=== PATIENT | female | born 1970 | race Caucasian/White ===

== ENCOUNTER 2020-11-11 17:06 | Emergency (ER) | payer BC ==
[~2020-11-11] VITALS: Ht 167.6 cm; Wt 71.2 kg
[~2020-11-11 17:06] MED LIST: LIDEX0.05% T; PREDNICOT20 MG PO; VICODIN ES 7501 TAB PO
[2020-11-11 17:18] VITALS: BP 137/87
[2020-11-11] MEDS ORDERED: IBUPROFEN600 MG PO (19:01)
[2020-11-11] MEDS ORDERED: AUGMENTIN 875875 MG PO (19:01)
== END 2020-11-11 21:08 | disposition home or self-care (01) ==
LOC: ED 17:06
DX: S61.251A Open bite of left index finger without damage to nail, initial encounter (principal); W55.51XA Bitten by raccoon, initial encounter; Y93.89 Activity, other specified; Y92.89 Other specified places as the place of occurrence of the external cause; Y99.8 Other external cause status

== ENCOUNTER 2020-11-14 08:34 | Emergency (ER) | payer BC ==
[~2020-11-14] VITALS: Ht 167.6 cm; Wt 71.2 kg
[~2020-11-14 08:34] MED LIST changes: +AUGMENTIN 875875 MG PO; +IBUPROFEN600 MG PO
[2020-11-14 08:42] VITALS: BP 124/80
== END 2020-11-14 09:27 | disposition home or self-care (01) ==
LOC: ED 08:34
DX: Z23 Encounter for immunization (principal)

== ENCOUNTER 2020-11-17 10:31 | Emergency (ER) | payer BC ==
[~2020-11-17] VITALS: Ht 167.6 cm; Wt 71.2 kg
[2020-11-17 10:44] VITALS: BP 102/70
== END 2020-11-17 11:15 | disposition home or self-care (01) ==
LOC: ED 10:31
DX: Z23 Encounter for immunization (principal)

== ENCOUNTER 2020-11-24 08:03 | Emergency (ER) | payer BC ==
[~2020-11-24] VITALS: Ht 167.6 cm; Wt 71.2 kg
[2020-11-24 08:12] VITALS: BP 132/76
== END 2020-11-24 08:30 | disposition home or self-care (01) ==
LOC: ED 08:03
DX: Z23 Encounter for immunization (principal)